=== PATIENT | male | born 1980 | race Caucasian/White ===

== ENCOUNTER → 2022-09-23 | Outpatient (CLI) | payer OTHER, SELFPAY | END | disposition home or self-care (01) | PROVIDERS: Visit Provider Otolaryngology Otolaryngology/Facial Plastic Surgery | DX: G47.33 Obstructive sleep apnea (adult) (pediatric) (principal) | CPT/HCPCS: 95810 ==

== ENCOUNTER 2023-03-14 15:19 | Observation (INO) | payer OTHER, SELFPAY ==
[2023-03-14] VITALS (8 sets, daily range): BP systolic 108–146; BP diastolic 72–92; PULSE 80–110; RESP 16–20; TEMP 36.6–37.7; O2SAT 93–99; BMI 26.9
--- NOTE | 2023-03-14 15:40 | CT_ITS ---
We are attempting to reach an attending provider to discuss findings. An addendum with communication details will be sent when the communication is complete. STUDY: CT ABDOMEN AND PELVIS WITH CONTRAST REASON FOR EXAM: Male, 43 years old. abdominal pain RADIATION DOSAGE (If Supplied By Facility): CTDIvol = ( 12.72 ) mGy, DLP = ( 610.47 ) mGycm TECHNIQUE: Transaxial images were obtained from the dome of the diaphragm to the symphysis pubis without oral contrast. IV 100mL Isovue-300 was administered. Sagittal and coronal images were reconstructed. Individualized dose optimization techniques were used for this CT. COMPARISON: None. FINDINGS: Trace right lower lobe atelectasis, otherwise clear lung bases. Remainder of the visualized lung bases are unremarkable. The visualized portions of the heart are within normal limits. Normal liver. Normal gallbladder and extrahepatic biliary system. Normal spleen. Normal pancreas. Normal bilateral adrenal glands. Normal right kidney. Normal left kidney. Normal visualized stomach. Normal small intestine. The colon is decompressed with mild thickening of the wall more so through the descending portion concerning for colitis. The appendix is distended up to 13 mm with small punctate appendicolith measuring approximately 3.5 mm. There are mild surrounding inflammatory changes, combination of findings consistent with acute nonruptured appendicitis. Normal abdominal aorta. Normal inferior vena cava. Normal retroperitoneum. Normal urinary bladder. Normal abdominal wall. Normal osseous structures. CT/Abdomen/Pelvis W IV Cont ONLY IMPRESSION: Acute nonruptured appendicitis. Surgical correlation recommended. No drainable abscess. No free air or free fluid. Electronically Signed: Lucia Morin MD at 17:03 EDT ,
--- NOTE | 2023-03-14 15:42 | EX.ED.DYSGE1 ---
HPI History of Present Illness Chief Complaint: Abd Pain Informant: patient and spouse/S.O. Narrative Narrative: 43-year-old male presenting to the emergency department with chief complaint abdominal pain. Patient states he woke during the night with pain. It is continued constantly throughout the day at times worse. States he keeps feel like he needs to have a bowel movement but has not had one since around 0500 hrs. Denies any fever. At times he has felt nauseated. He states they did have a get together yesterday but nobody else has been feeling ill. He denies that there was any potential bad food exposure. He did eat Bhavesh Dimitri with his children yesterday but stated that nothing seemed undercooked or abnormal. 2 and half weeks ago he had a lateral meniscal repair in [place]. No rashes. He describes the stool as formed but soft. He did not notice any blood or mucus. PFSH PFS Home Medications NK 10/05/22 [History Last Taken Unknown] Allergy/AdvReac Type Severity Reaction Status Date / Time No Known Allergies Allergy Verified 03/14/23 15:20 Family History Father Diabetes Mother Hypertension Surgical History (Updated 03/14/23 @ 15:51 by Christine Nelson) H/O wrist surgery S/P ACL repair Status post lateral meniscal repair Social History Smoking Status: Never smoker ROS ROS ED Constitutional Constitutional ED: Denies chills or weight loss Eyes Eyes: Denies change in vision or diplopia ENT ENT ED: Denies ear pain, rhinorrhea or sore throat Cardiovascular Cardiovascular: Denies chest pain, orthopnea, palpitations or racing heartbeat Respiratory/Chest Respiratory/Chest: Denies cough, dyspnea or orthopnea Gastrointestinal Gastrointestinal: Reports abdominal pain and nausea; Denies constipation, diarrhea or vomiting Genitourinary Genitourinary ED: Denies dysuria, hematuria or urinary frequency Musculoskeletal Musculoskeletal: Denies arthralgias or myalgias Integumentary Denies abscess or rash Neurologic Neurologic: Denies headache(s) or weakness Psychiatric Psychiatric: Denies anxiety, depression, suicidal ideation or suicidal thoughts Endocrine Endocrinology: Denies polydipsia, polyphagia or polyuria Allergic/Immunologic Allergic/Immunologic ED: Denies mouth swelling, tongue swelling or urticaria EXAM Physical Exam Const Vital Signs: 03/14/23 15:20 Temperature 97.9 F Temperature Source Temporal Pulse Rate 80 Respiratory Rate 16 Blood Pressure 141/92 H Blood Pressure Mean 108 Pulse Ox 99 Oxygen Delivery Method Room Air Positive well nourished and well developed General Appearance ED: well developed HEENT Reports normocephalic, head/scalp atraumatic and moist mucous membranes Eyes PERRL and EOMs intact bilaterally Neck no lymphadenopathy, supple and no JVD Resp normal respiratory effort and clear to auscultation bilaterally Cardio regular rate, regular rhythm and no murmurs GI Inspection: Negative for abdominal distention Auscultation: normoactive bowel sounds Palpation: soft, tender other (Diffuse tenderness) and guarding; Negative for rebound tenderness present Back/Spine no CVA tenderness and normal ROM Extremity normal to inspection General Extremety ED: Negative for edema General Extremity: Negative for edema Neuro oriented x3 and CN's II-XII intact bilaterally Sensorium / Orientation: alert Motor Exam: strength 5/5 throughout Psych mental status grossly normal Mood & Affect: Negative for depressed or tearful Skin no rashes or lesions noted and no wounds MDM MDM Lab Data Attestation: I reviewed the patient's lab results. Labs: Laboratory Results - last 24 hr 03/14/23 15:50 WBC 18.7 H RBC 5.31 Hgb 15.7 Hct 44.8 MCV 84.4 MCH 29.6 MCHC 35.0 RDW Std Deviation 35.4 RDW Coeff of [place] 11.6 Plt Count 311 MPV 10.5 Immature Gran % (Auto) 0.500 Neut % (Auto) 89.6 H Lymph % (Auto) 5.4 L [place] % (Auto) 4.3 Eos % (Auto) 0.0 Baso % (Auto) 0.2 Absolute Neuts (auto) 16.8 H Absolute Lymphs (auto) 1.01 Nucleated RBC % 0 Discharge Plan Triage Chief Complaint: Abd Pain ED Provider: Eduardo Sylvester Dx/Rx/DC Orders Prescriptions: No Action NK Primary Care Provider: Raheem Yip Referrals: Raheem Yip, VP [employer]ES[employer] [Primary Care Provider] -
[2023-03-14] MEDS: Ondansetron 4 MG/2 ML Vial IV (15:49)
[2023-03-14] MEDS: Dicyclomine 20 MG/2 ML Vial IM (15:49)
[2023-03-14] MEDS: 0.9% Normal Saline (1000mL) 1,000 ML 1000 ML IV (15:49)
[2023-03-14 16:05] LABS: Absolute Lymphocyte Count 1.01 X10^3/uL (0.83-4.51); Absolute Neutrophil Count 16.8 X10^3/uL (2.0-7.7); Basophil# 0.04 X10^3/uL; Basophil% 0.2 % (0-1); Hematocrit 44.8 % (40-54); Hemoglobin 15.7 g/dL (13.0-16.5); Lymphocyte # 1.01 X10^3/ul (0.83-4.51); Lymphocyte % 5.4 % (19-41); Mean Corpuscular Hgb 29.6 pg (27.0-32.0); Mean Corpuscular Volume 84.4 fL (80-94); Mean Platelet Vol. 10.5 fl (6.2-12.0); Monocyte# 0.81 X10^3/uL; Monocyte% 4.3 % (0-10); NRBC Flagged by Analyzer 0 % (0-5); Neutrophil # 16.76 X10^3/uL (2.7-7.7); Neutrophil % 89.6 % (47-70); Platelet Count 311 K/mm3 (150-450); RBC Distribution Width CV 11.6 % (11.6-14.6); RBC Distribution Width SD 35.4 fl (35.1-43.9); Red Blood Count 5.31 M/mm3 (4.6-6.2); White Blood Count 18.7 K/mm3 (4.4-11.0)
[2023-03-14 16:15] LABS: Bacteria 0 SEEN /hpf (None Seen); Mucous, Urine 0 SEEN /hpf (<or=2+); Red Blood Cells-Urine 0 SEEN /hpf (0-5)
[2023-03-14 16:18] LABS: Color, Urine Yellow (Yellow); Glucose, Dipstick Normal (Normal); Ketone-Dipstick 5 mg/dl (Negative); Leukocyte Esterase-Dipstick 25 /ul (Negative); Nitrite-Dipstick Negative (Negative); Occult Blood-Urine Negative /ul (Negative); Protein-Dipstick 15 mg/dl (Negative); Urine Bilirubin Dipstick Negative (Negative); Urine Clarity Clear (Clear); Urine Urobilinogen Normal (Normal)
[2023-03-14 16:18] LABS: AST(SGOT) 18 U/L (15-37); Alanine Aminotransfer ALT/SGPT 38 U/L (16-61); Albumin, Serum 3.8 g/dL (3.2-5.0); Alkaline Phosphatase 82 U/L (45-117); Anion Gap 9 (5-15); BUN 13 mg/dL (7-18); BUN/Creat Ratio 14.1 RATIO (10-20); Bilirubin, Direct 0.22 mg/dL (0.00-0.30); Calcium,Total 9.5 mg/dL (8.5-10.1); Chloride 102 mmol/L (98-107); Creatinine, Serum 0.92 mg/dL (0.70-1.30); EST Glomerular Filtration Rate 96 mL/min (>60); Est Glom Filt Rate - Afr Amer 116 mL/min (>60); Globulin 3.3 g/dL (2.2-4.2); Glucose 121 mg/dL (74-106); Lipase 15 U/L (13-75); Protein, Total 7.1 g/dL (6.4-8.2); Sodium Level 137 mmol/L (136-145)
[2023-03-14 16:32] LABS: Squamous Epithelial Cells - UA 0-5 SEEN /hpf (0-5); White Blood Cells 0-5 SEEN /hpf (0-5)
[2023-03-14 16:33] LABS: Amorphous Sediment 1+ PHOS
[2023-03-14] MEDS: Morphine 4 MG/ML Syringe IV (17:18)
[2023-03-14] MEDS: Piperacil/Tazobactam 4.5 GM in 0.9% Normal Saline (100mL MB+) 100 ML IV (17:43)
--- NOTE | 2023-03-14 17:51 | HP.PCM_ITS ---
HPI - General General Date of Service: 03/14/23 Chief Complaint: Acute onset abdominal pain HPI Narrative MALINDA HURT, is a 43 M who presents to [facility] with his spouse for complaints of acute onset abdominal pain that woke him out of sleep approximately 330 this morning. He states that he thought he needed to have a bowel movement but when he had his bowel movement at 5 AM the pain persisted and intensified. He notes that regionally the pain began around his navel and radiated toward his sternum but has gradually moved lower throughout the day. He has experienced some associated nausea but no fever. He denies any similar symptoms in his past. He has no ill contacts. Patient's ER work-up is notable for CBC that demonstrates leukocytosis of 18.[address] imaging confirms a 13 mm appendix with a 3.5 mm appendicolith. There are no signs of perforation or free fluid. Patient has a medical history inclusive only of a diagnosis of obstructive sleep apnea and he confirms that he is compliant with CPAP use. He also relates that he just underwent a meniscal repair in the past couple of weeks and had no associated anesthetic complications. Mr. Johnson denies any history of GI diagnoses and denies any family history of colon cancer. [facility] Home Medications NK 10/05/22 [History Last Taken Unknown] Allergy/AdvReac Type Severity Reaction Status Date / Time No Known Allergies Allergy Verified 03/14/23 15:20 Family History Father Diabetes Mother Hypertension Surgical History (Updated 03/14/23 @ 15:51 by Christine Nelson) H/O wrist surgery S/P ACL repair Status post lateral meniscal repair Social History Smoking Status: Never smoker Vital Signs Vital Signs Vital Signs: 03/14/23 15:20 03/14/23 17:48 Temperature 97.9 F 98.5 F Temperature Source Temporal Pulse Rate 80 81 Respiratory Rate 16 20 H Blood Pressure 141/92 H 146/83 H Blood Pressure Mean 108 104 Pulse Ox 99 99 Oxygen Delivery Method Room Air Weight Weight: 187 lb 8 oz Body Mass Index (BMI) 26.9 Physical Exam Const alert and oriented x3 Constitutional Narrative: In mild distress from abdominal discomfort Resp Resp Narrative: Mildly tachypneic GI GI Narrative: Hirsute, no scars, apparent small umbilical hernia, soft, tender to palpation rather diffusely but with focus over McBurney's point. Patient has positive Rovsing's, positive psoas, and mildly positive obturator signs. Results Lab / Micro Data 03/14/23 15:50 03/14/23 15:50 Labs: Laboratory Results - last 24 hr 03/14/23 15:50: WBC 18.7 H, RBC 5.31, Hgb 15.7, Hct 44.8, MCV 84.4, MCH 29.6, MCHC 35.0, RDW Std Deviation 35.4, RDW Coeff of [place] 11.6, Plt Count 311, MPV 10.5, Immature Gran % (Auto) 0.500, Neut % (Auto) 89.6 H, Lymph % (Auto) 5.4 L, [place] % (Auto) 4.3, Eos % (Auto) 0.0, Baso % (Auto) 0.2, Absolute Neuts (auto) 16.8 H, Absolute Lymphs (auto) 1.01, Nucleated RBC % 0, Sodium 137, Potassium 4.0, Chloride 102, Carbon Dioxide 26.0, Anion Gap 9, BUN 13, Creatinine 0.92, Estim Creat Clear Calc 108.00, Est GFR (MDRD) Af Amer 116, Est GFR (MDRD) Non-Af 96, BUN/Creatinine Ratio 14.1, Glucose 121 H, Calcium 9.5, Total Bilirubin 0.90, Direct Bilirubin 0.22, AST 18, ALT 38, Alkaline Phosphatase 82, Total Protein 7.1, Albumin 3.8, Globulin 3.3, Lipase 15 03/14/23 16:08: Urine Color Yellow, Urine Clarity Clear, Urine pH 7.0, Ur Specific [place] 1.010, Urine Protein 15 H, Urine Glucose (UA) Normal, Urine Ketones 5 H, Urine Occult Blood Negative, Urine Nitrite Negative, Urine Bilirubin Negative, Urine Urobilinogen Normal, Ur Leukocyte Esterase 25 H, Urine RBC 0 SEEN, Urine WBC 0-5 SEEN, Ur Squamous Epith Cells 0-5 SEEN, Amorphous Sediment 1+ PHOS, Urine Bacteria 0 SEEN, Urine Mucus 0 SEEN Radiology Impression Abdomen/Pelvis CT 03/14/23 15:40 IMPRESSION: Acute nonruptured appendicitis. Surgical correlation recommended. No drainable abscess. No free air or free fluid. Electronically Signed: Lucia Morin MD at 17:03 EDT , ADDENDUM: 03/14/23 1724 IMPRESSION: Acute nonruptured appendicitis. Surgical correlation recommended. No drainable abscess. No free air or free fluid. N.B. : The above Results were Read Back by Lucia Morin MD to Eduardo Sylvester DO, and understanding confirmed on 03/14/2023 17:17:11 (ET). Electronically Signed: Lucia Morin MD at 17:03 EDT , Assessment & Plan Assessment/Plan (1) Acute appendicitis: PLAN: This is a 43-year-old, otherwise healthy, male who presents with signs and symptoms of a early acute appendicitis. His exam confirms this diagnosis and treatment options were discussed. I shared with him a synopsis of the findings of the recently published CODA trial and that the subgroup analysis did demonstrate patients with appendicoliths to be at risk for failure of antibiotics alone management. I then recommended that we proceed for laparoscopic appendectomy and discussed the procedure details as well as expectations for postoperative recovery and follow-up. I described that many times similar patient's should be eligible for outpatient surgery with postoperative discharge, however, given that we are approaching a later hour over the weekend I would recommend planning for postoperative observational stay and discharge in the morning. Patient and his spouse expressed their appreciation for these explanations and verbally gives their agreement to proceed as described. Empiric coverage with IV Zosyn to be dosed by emergency medicine in the interim.
--- NOTE | 2023-03-14 17:57 | NURSING ---
SURGERY THEN MED SURG OBS BORTZ APPENDICITIS
--- NOTE | 2023-03-14 19:05 | APP_PTH ---
PATIENT: MALINDA HURT LOC: MS3 U#:[id number] AGE/SX: 43/M ROOM: DE319 RE03/14/[address]: Dr. Gael Barcenas MD : 1980 BED: 1 DIS: 03/15/2023 SPEC #: [id number] RECD: 03/15/23 07:21 STATUS: EUGENIA REKenny #: [id number] MARIE: 03/14/23 19:[address]: Gael Barcenas DEPT: SURGICAL PATHOLOGY RECD BY: Bing Haile ENTERED: 03/15/23 07:38 SP TYPE: APPENDIX OTHR DR: SAI Sheffield Tissues: Appendix, NOS Procedures: Surgery Specimen Level III HEADER OPERATION: Laparoscopic appendectomy PRE-OP DIAGNOSIS: Acute appendicitis TISSUE SUBMITTED: Appendix MICROSCOPIC DIAGNOSIS Appendix, appendectomy: Acute appendicitis. Acute serositis. AM:ebenezer 03/16/2023 MICROSCOPIC DESCRIPTION Slides are reviewed. GROSS DESCRIPTION Received in fixative is one container labeled with the patient's name and designated appendix. The specimen consists of a J-shaped appendix measuring 12.0 cm in length and up to 1.0 cm in diameter. The attached periappendiceal adipose tissue measures up to 1.5 cm in width. The serosal surface is congested and covered focally with hankins, purulent exudate. No obvious perforation is identified. The lumen is filled with hemorrhagic, purulent material. A small amount of fecal material is also noted. No fecalith is identified. Manager Integration sections are submitted in one cassette. / SJ:rg 03/15/2023 TC:2 CPT: 88884
[2023-03-14] MEDS: Bupivacaine Mpf 0.5% 30 ML VIAL (20:36)
--- NOTE | 2023-03-14 20:44 | OP.PCM_ITS ---
Report of Operation Date of Procedure: 03/14/23 Pre-Operative Diagnosis: 1. Acute appendicitis 2. Umbilical hernia?nonincarcerated (1.5 cm fascial defect) Post-Operative Diagnosis: 1. Acute, uncomplicated appendicitis 2. Umbilical hernia?nonincarcerated (1.5 cm fascial defect) Surgery/Procedure Performed:: Laparoscopic appendectomy with primary repair of umbilical hernia Surgeon: Gael Barcenas command and control specialist: None Type of Anesthesia: General/Supplemental Anesthesiologist: Del Villegas Specimen's removed: Appendix Drains: None Estimated Blood Loss (mL): 15 Description of Procedure: After appropriate identification in the preoperative holding area, the patient was brought to the operating room and placed supine on the operating room table. Antibiotics had been preoperatively administered by emergency medicine. Patient was then induced with general endotracheal anesthetic. The abdomen was prepped and draped in usual sterile fashion. Formal timeout was conducted to confirm both the patient and the procedure. A curvilinear incision was made in the lower aspect of the umbilical ring and blunt dissection was used to circumferentially dissect out the hernia sac. The overlying skin was sharply amputated from the hernia sac revealing a 1.5 cm fascial defect. Unfortunately this was slightly too small to accommodate our trocar so it was sharply incised with Yancey scissors are elevated with a hemostat clamp. A finger sweep was made to confirm position, and a balloon trocar was placed and pneumoperitoneum was established to 15 mmHg. The peritoneum was inspected and there were no signs of inadvertent injury from this Turner entry. Patient was positioned in Trendelenburg with the left side down. Two additional 5 mm trocars were placed in the left lower quadrant and suprapubic positions. The appendix was visualized with mild to moderate inflammation and appeared to be drawing the terminal ileum into a particularly inflamed aspect of the mid appendix. Using blunt laparoscopic dissection, a window was made in the mesoappendix adjacent to the appendiceal base. However due to the inflammation involving the terminal ileum I sought to divide the mesoappendix prior to dividing the appendix so as to assure safe working distance to the area of the terminal ileum. The mesoappendix was divided with application of a laparoscopic harmonic and serial bites along the body of the appendix until we reached the appendiceal base. Then the base of the appendix was sealed and amputated with the use of an Endo ASMITA stapler. The appendix was placed in an Endo Catch bag. The staple line was inspected for hemostasis but there appeared to be persistent oozing from the most lateral aspect of the divided appendiceal base. This was despite application of direct pressure through a part of the fatty sail of the appendix. Therefore I resolved to simply place a single titanium clip across this part of the staple line and this did result in hemostasis. Some turbid fluid around the appendix was suctioned free and the area was copiously irrigated with normal saline using her suction chemistry manager device. This fluid appeared to be reactive in nature. After hemostasis was again confirmed the appendix was removed from the umbilical port site. Pneumoperitoneum was then evacuated and the umbilical hernia site fascia was closed with 0 PDS in a [id number] fashion. The overlying skin was tacked down to the fascia and all remaining incisions were closed in a subcuticular technique using 4-0 Monocryl. Prior to closure the port sites were infiltrated with 11 mL local anesthetic. A rolled Telfa was placed in the concavity of the umbilical closure after Steri-Strips were applied to each incision line and then OpSite dressings were applied. Patient tolerated procedure well without any apparent complications. They were awoken from genera l anesthetic without issue and transferred to post anesthesia care unit for ongoing recovery. Grafts/Implants Used: None Complications None Admit VTE Documentation VTE Mechan Device Prophylaxis: SCD's
[2023-03-14] MEDS: Lactated Ringers 1,000 ML 15 ML IV (21:14)
[2023-03-14] MEDS: Ibuprofen 400 MG Tablet PO (22:41)
[2023-03-14] MEDS: 0.9% Saline Lock 10 ML Syringe IV (22:41)
[2023-03-14] MEDS: 0.9% Normal Saline (1000mL) 1,000 ML 125 ML IV (22:55)
[2023-03-15] MEDS: Acetaminophen 500 MG Tablet PO ×2 (00:52→06:52)
[2023-03-15 00:55] VITALS: BP 103/65; PULSE 100; RESP 16; TEMP 36.9; O2SAT 95
[2023-03-15 03:00] VITALS: BP 105/65; PULSE 88; RESP 14; TEMP 36.7; O2SAT 97
[2023-03-15] MEDS: 0.9% Normal Saline (1000mL) 1,000 ML 125 ML IV (06:08)
[2023-03-15] MEDS: Ibuprofen 400 MG Tablet PO (08:26)
[2023-03-15 08:44] VITALS: BP 98/69; PULSE 80; RESP 16; TEMP 36.8; O2SAT 96
--- NOTE | 2023-03-15 10:44 | PCM.DC ---
Discharge Instructions Diet Discharge Diet: No restrictions Activity Discharge Activity: May Not Drive (No driving while using narcotic pain medication) and May Shower (Postoperative day 1) May shower in (days): 1 Ice area for (Minutes): 20 Lifting Restrictions: No lifting greater than 15 pounds for 4 weeks after surgery Dressing / Incision Call your doctor if your incision/area has: Continuous Slow Oozing, Increased Pain/ Swelling, Increased Redness, Foul Smelling Discharge and Swelling at the incision site Call your doctor if you observe: Fever of 101 or Higher Remove Dressing in: 1 day (Please leave Steri-Strips intact until they fall off spontaneously or are taken off at your follow-up visit) Cleanse incision/area with: Soap & Water Follow Up Care Please Follow Up With: Gael Barcenas MD When: 7-10days postop Test Results: Test results from this visit will be discussed in further detail at your follow-up appointment, if applicable. Discharge Plan Admission Admit Date/Time: 03/14/23 18:06 Primary Reason for Your Visit: Acute appendicitis Attending Provider: Gael Barcenas Primary Care Provider: Raheem Yip Discharge Orders/Prescriptions Prescriptions: New oxycodone 5 mg Tablet 5 mg PO Q6H PRN PRN (Reason: Pain Score 6-10) 3 Days Qty: 14 0RF Referrals / Follow Up: Raheem Yip, COMMUNICATION EQUIPMENT REPAIRER-C [Primary Care Provider] - Disposition Disposition (needs filled in before D/C Order can be placed): Home, Self Care
--- NOTE | 2023-03-15 10:55 | DS.PCM_ITS ---
Providers Date of Admission: 03/14/23 Primary Care Physician: FANNIE SheffieldC Reason For Visit: abd pain Diagnosis Discharge Diagnosis (1) Acute appendicitis: Status: Acute Code(s): K35.80 - Unspecified acute appendicitis Plan: This is a 43-year-old, otherwise healthy, male who presents with signs and symptoms of a early acute appendicitis. His exam confirms this diagnosis and treatment options were discussed. I shared with him a synopsis of the findings of the recently published CODA trial and that the subgroup analysis did demonstrate patients with appendicoliths to be at risk for failure of antibi otics alone management. I then recommended that we proceed for laparoscopic appendectomy and discussed the procedure details as well as expectations for postoperative recovery and follow-up. I described that many times similar patient's should be eligible for outpatient surgery with postoperative discharge, however, given that we are approaching a later hour over the weekend I would recommend planning for postoperative observational stay and discharge in the morning. Patient and his spouse expressed their appreciation for these explanations and verbally gives their agreement to proceed as described. Empiric coverage with IV Zosyn to be dosed by emergency medicine in the interim. Medications at Discharge Home Medications oxycodone 5 mg tablet 5 mg PO Q6H PRN PRN Pain Score 6-10 3 days #14 tabs 03/15/23 Hospital Course Operations appendectomy (03/14/2023) Summary of Care Provided Hospital Course: Patient is a 43-year-old male who presented afternoon of 03/14/2023 to [facility] emergency department with signs and symptoms of acute appendicitis. When his laboratories and CT imaging were further confirmatory of this diagnosis emergent laparoscopic appendectomy was recommended. Patient was receptive of this recommendation and further we discussed primary repair of his umbilical hernia during this operation which he agreed to as well. Thus the operation proceeded the same evening in an uncomplicated fashion with findings of uncomplicated appendicitis, but given the late hour patient was admitted to postoperative hospital observation. Postoperative day 1 he reports significant improvement in his pain and is well-appearing on exam. He denies any issues with his clear liquid diet started immediately postop. Post procedure expectations were reviewed and patient expresses both understanding and comfort with these instructions. Therefore, given these clinical improvements d ischarged home was granted. We will plan to see patient in outpatient follow-up in approximately 7 to 10 days. Physical Exam Const alert, oriented x3 and no apparent distress Resp normal respiratory effort GI GI Narrative: Mild spotting of suprapubic dressing, soft, appropriately tender to palpation about port site incisions Weight / BMI Weight Weight: 187 lb 8 oz Body Mass Index (BMI) 26.9 ABG / Lab / Microbiology Data 03/14/23 15:50 03/14/23 15:50 Laboratory: Laboratory Results - last 24 hr 03/14/23 15:50: WBC 18.7 H, RBC 5.31, Hgb 15.7, Hct 44.8, MCV 84.4, MCH 29.6, MCHC 35.0, RDW Std Deviation 35.4, RDW Coeff of [place] 11.6, Plt Count 311, MPV 1 0.5, Immature Gran % (Auto) 0.500, Neut % (Auto) 89.6 H, Lymph % (Auto) 5.4 L, [place] % (Auto) 4.3, Eos % (Auto) 0.0, Baso % (Auto) 0.2, Absolute Neuts (auto) 16.8 H, Absolute Lymphs (auto) 1.01, Nucleated RBC % 0, Sodium 137, Potassium 4.0, Chloride 102, Carbon Dioxide 26.0, Anion Gap 9, BUN 13, Creatinine 0.92, Estim Creat Clear Calc 108.00, Est GFR (MDRD) Af Amer 116, Est GFR (MDRD) Non-Af 96, BUN/Creatinine Ratio 14.1, Glucose 121 H, Calcium 9.5, Total Bilirubin 0.90, Direct Bilirubin 0.22, AST 18, ALT 38, Alkaline Phosphatase 82, Total Protein 7.1, Albumin 3.8, Globulin 3.3, Lipase 15 03/14/23 16:08: Urine Color Yellow, Urine Clarity Clear, Urine pH 7.0, Ur Specific [place] 1.010, Urine Protein 15 H, Urine Glucose (UA) Normal, Urine Ketones 5 H, Urine Occult Blood Negative, Urine Nitrite Negative, Urine Bilirubin Negative, Urine Urobilinogen Normal, Ur Leukocyte Esterase 25 H, Urine RBC 0 SEEN, Urine WBC 0-5 SEEN, Ur Squamous Epith Cells 0-5 SEEN, Amorphous Sediment 1+ PHOS, Urine Bacteria 0 SEEN, Urine Mucus 0 SEEN Radiography Diagnostic Testing: Radiology Impression Abdomen/Pelvis CT 03/14/23 15:40 IMPRESSION: Acute nonruptured appendicitis. Surgical correlation recommended. No drainable abscess. No free air or free fluid. Electronically Signed: Lucia Morin MD at 17:03 EDT , ADDENDUM: 03/14/23 1724 IMPRESSION: Acute nonruptured appendicitis. Surgical correlation recommended. No drainable abscess. No free air or free fluid. N.B. : The above Results were Read Back by Lucia Morin MD to Eduardo Sylvester DO, and understanding confirmed on 03/14/2023 17:17:11 (ET). Electronically Signed: Lucia Morin MD at 17:03 EDT , D/C Instructions Discharge Diet: No restrictions May shower in (days): 1 Ice area for (Minutes): 20 Call your doctor if your incision/area has: Continuous Slow Oozing, Increased Pain/ Swelling, Increased Redness, Foul Smelling Discharge and Swelling at the incision site Call your doctor if you observe: Fever of 101 or Higher Cleanse incision/area with: Soap & Water Please Follow Up With: Gael Barcenas MD When: 7-10days postop Meaningful Use Info Meaningful Use Diagnoses (Choose all that apply): None applicable Discharge Plan Admission Admit Date/Time: 03/14/23 18:06 Primary Reason for Your Visit: Acute appendicitis Attending Provider: Gael Barcenas Primary Care Provider: Raheem Yip Discharge Orders/Prescriptions Prescriptions: New oxycodone 5 mg Tablet 5 mg PO Q6H PRN PRN (Reason: Pain Score 6-10) 3 Days Qty: 14 0RF Referrals / Follow Up: Raheem Yip, [employer] [Primary Care Provider] - Disposition Disposition (needs filled in before D/C Order can be placed): Home, Self Care Charges/Coding Visit Charges Inpatient E&M: 38716 Disch Hosp
--- NOTE | 2023-03-15 11:18 | PHA.DC.MC.R ---
Pharmacy [facility] has performed discharge medication reconciliation and counseling for this patient. The patient's discharge medication list was reviewed for discrepancies and discrepancies were resolved. The patient was counseled on the following discharge medications and changes in medications for homegoing were reviewed. The Reason for Use, instructions for use, and potential side effects were reviewed for all new medications. The patient's questions regarding all of their medications were answered. 1. Oxycodone 5 mg PO Q6H PRN Pain The patient was able to verbally demonstrate an understanding of their discharge medications. Medications at Discharge Home Medications oxycodone 5 mg tablet 5 mg PO Q6H PRN PRN Pain Score 6-10 3 days #14 tabs 03/15/23
[2023-03-15 11:30] VITALS: BP 100/72; PULSE 78; RESP 16; TEMP 36.8; O2SAT 100
== END 2023-03-15 11:49 | disposition home or self-care (01) ==
LOC: ED 16:53 → SDC 17:46 → AC 18:12 → SDC 22:07 → MS3 22:07
PROVIDERS: Admitting Provider Surgery; Emergency Provider Emergency Medicine; PCP Nurse Practitioner Family; Referring Provider Surgery; Visit Provider Surgery
PROC: 0DTJ4ZZ Resection of Appendix, Percutaneous Endoscopic Approach (ICD-10-PCS; CPT 44970; principal; 2023-03-14 18:45)
DX: K35.80 Unspecified acute appendicitis (principal); G47.33 Obstructive sleep apnea (adult) (pediatric); K42.9 Umbilical hernia without obstruction or gangrene; Z98.890 Other specified postprocedural states
CPT/HCPCS: 44970; 00840; 74177; 80048; 80076; 81001; 83690; 85025; 88304; 96361; 96372; 96374; 96375; 99221; 99284; J7030; J7120; Q9967; A4216; G0378; J2405